=== PATIENT | male | born 1955 | race African-American/Black ===

== ENCOUNTER 2020-03-22 21:03 | Inpatient (IN) | payer MEDICAID ==
[~2020-03-22] VITALS: Ht 177.8 cm; Wt 64.5 kg
[~2020-03-22 21:03] MED LIST: TERA10CA3 PO
[2020-03-22] MEDS ORDERED: SODIUM CHLORIDE FLUSH 10ML SYR IVF ONE ×2 (21:30→22:30)
[2020-03-22] MEDS ORDERED: PLEASE ENTER HEIGHT AND WEIGHT MC SCH (21:30)
[2020-03-22] MEDS ORDERED: ONDANSETRON 2MG/ML, 2ML IVPush ONE (21:30)
[2020-03-22] MEDS ORDERED: ONDANSETRON 2MG/ML, 2ML ONE (21:40)
[2020-03-22] MEDS ORDERED: MORPHINE SULFATE 4 MG/ML, 1ML ONE ×2 (21:40→22:39)
[2020-03-22 21:46] LABS: ALANINE AMINOTRANSFERASE 113 U/L (12-78); ALBUMIN 3.1 g/dL (3.4-5.0); ANION GAP 20 mmol/L (5-15); CALCIUM 9.7 mg/dL (8.5-10.1); CHLORIDE 111 mmol/L (98-107); MEAN CORPUSCULAR HEMOGLOBIN 29.3 pg (27.5-34.5); MEAN CORPUSCULAR HGB CONC 33.3 g/dL (33.2-36.2); MEAN CORPUSCULAR VOLUME 87.9 fL (81-97); MEAN PLATELET VOLUME 8.7 fL (7.4-10.4); PLATELET COUNT 228 x10^3/uL (130-400); RED BLOOD COUNT 4.77 x10^6/uL (4.38-5.82); RED CELL DISTRIBUTION WIDTH 13.5 % (9.4-14.8)
[2020-03-22 21:56] LABS: ALKALINE PHOSPHATASE 74 U/L (45-117); BILIRUBIN,TOTAL 0.6 mg/dL (0.2-1.0); TOTAL PROTEIN 8.4 g/dL (6.4-8.2)
[2020-03-22] MEDS: MORPHINE SULFATE 4 MG/ML, 1ML IVPush PRN ×2 (22:04→22:46)
--- NOTE | 2020-03-22 22:05 | NUR ---
TP RN: BUN 225 TAKEN FROM AMOL FERRERA AND REPORTED TO ERP.
[2020-03-22] MEDS ORDERED: SODIUM CHLORIDE 0.9% 1,000 ML IV ONE (22:07)
--- NOTE | 2020-03-22 22:07 | NUR ---
IV ESTABLISHED, PT MEDICATED PER EMAR. 5 RIGHTS ADDRESSED. VITALS REMAIN STABLE. OFFICER AT BEDSIDE.
[2020-03-22] MEDS ORDERED: SODIUM CHLORIDE 0.9% 1,000ML IVBOLUS ONE (22:30)
[2020-03-22 22:32] LABS: BASOPHILS % (AUTO) 0 % (0-1); EOSINOPHILS % (AUTO) 0 % (1-7); LYMPHOCYTES # (AUTO) 0.14 x10^3/uL (1-3.4); LYMPHOCYTES % (AUTO) 2 % (22-44); MD SCAN; MONOCYTES # (AUTO) 0.28 x10^3/uL (0.2-0.8); MONOCYTES % (AUTO) 3 % (2-9); NEUTROPHILS # (AUTO) 8.88 x10^3/uL (1.8-6.8); NEUTROPHILS % (AUTO) 95 % (42-75)
--- NOTE | 2020-03-22 22:46 | NUR ---
PT MEDICATED FOR PAIN. 5 RIGHTS ADDRESSED.
--- NOTE | 2020-03-22 23:08 | NUR ---
FELTON ATTEMPTED X 2 BY [address] DI[address] CORLEY PLACED 16 FR FELTON AT BEDSIDE. 2000ML URINE OUTPUT. DARK CLOUDY. PT REPORTS RELIEF. OFFICER REMAINS AT BEDSIDE. ALL VITALS STABLE .
--- NOTE | 2020-03-22 23:10 | NUR ---
URINE SAMPLE COLLECTED AND SENT TO LAB
[2020-03-22 23:31] LABS: MICROSCOPIC INDICATED
[2020-03-23 00:15] VITALS: BP 116/78
[2020-03-23] MEDS ORDERED: hydrALAzine 20 MG/ML, 1ML IVPush PRN (01:30)
[2020-03-23] MEDS ORDERED: ACETAMINOPHEN 325 MG TABLET PO PRN (01:30)
[2020-03-23] MEDS ORDERED: ONDANSETRON 2MG/ML, 2ML IVPush PRN (01:30)
[2020-03-23 01:44] LABS: CHLORIDE,URINE RANDOM 17 mmol/L; POTASSIUM,URINE RANDOM 14 mmol/L; SODIUM,URINE RANDOM 43 mmol/L
[2020-03-23 01:47] LABS: AMPHETAMINE SCREEN, URINE Positive (Negative); BARBITURATE SCREEN, URINE Negative (Negative); BENZODIAZEPINE SCREEN, URINE Negative (Negative); CANNABINOID SCREEN, URINE Negative (Negative); COCAINE SCREEN, URINE Negative (Negative); METHADONE SCREEN, URINE Negative (Negative); OPIATE SCREEN, URINE Negative (Negative)
[2020-03-23] MEDS: LACTATED RINGERS 1,000 ML IV SCH ×2 (01:48→10:47)
[2020-03-23] MEDS: CEFTRIAXONE PMX 1GM/50ML 50 ML IV SCH (02:08)
[2020-03-23 02:43] LABS: BASOPHILS % (AUTO) 0 % (0-1); EOSINOPHILS # (AUTO) 0.05 x10^3/uL (0-0.4); EOSINOPHILS % (AUTO) 0 % (1-7); LYMPHOCYTES # (AUTO) 0.45 x10^3/uL (1-3.4); LYMPHOCYTES % (AUTO) 4 % (22-44); MD NO; MEAN CORPUSCULAR HEMOGLOBIN 29.4 pg (27.5-34.5); MEAN CORPUSCULAR HGB CONC 33.2 g/dL (33.2-36.2); MEAN CORPUSCULAR VOLUME 88.5 fL (81-97); MEAN PLATELET VOLUME 8.3 fL (7.4-10.4); MONOCYTES # (AUTO) 0.61 x10^3/uL (0.2-0.8); MONOCYTES % (AUTO) 5 % (2-9); NEUTROPHILS # (AUTO) 11.69 x10^3/uL (1.8-6.8); NEUTROPHILS % (AUTO) 91 % (42-75); PLATELET COUNT 208 x10^3/uL (130-400); RED BLOOD COUNT 4.48 x10^6/uL (4.38-5.82); RED CELL DISTRIBUTION WIDTH 13.1 % (9.4-14.8)
[2020-03-23 02:48] LABS: ANION GAP 15 mmol/L (5-15); CALCIUM 9.2 mg/dL (8.5-10.1); CHLORIDE 122 mmol/L (98-107)
[2020-03-23 04:24] VITALS: BP 117/68
[2020-03-23 07:10] VITALS: BP 122/76
[2020-03-23] MEDS: SENNA/DOCUSATE TABLET PO SCH (10:47)
[2020-03-23] MEDS: TAMSULOSIN 0.4 MG CAP.ER.24H PO SCH (10:48)
[2020-03-23 12:42] VITALS: BP 115/76
[2020-03-23] MEDS: SODIUM BICARB 8.4%,50ML SYR. 75 MEQ in DEXTROSE 5% 1,000 ML IV SCH ×2 (13:08→21:41)
[2020-03-23 13:18] LABS: RED BLOOD COUNT 4.62 x10^6/uL (4.38-5.82)
[2020-03-23 13:35] LABS: ABSOLUTE RETICS # 0.026 x10^6/uL (0.5-1.5); RETICULOCYTE COUNT % 0.55 % (0.5-1.5)
[2020-03-23 13:36] LABS: CALCIUM 9.2 mg/dL (8.5-10.1)
[2020-03-23 18:58] VITALS: BP 115/74
[2020-03-24 00:22] VITALS: BP 130/75
[2020-03-24] MEDS: CEFTRIAXONE PMX 1GM/50ML 50 ML IV SCH (01:43)
[2020-03-24] MEDS: SODIUM BICARB 8.4%,50ML SYR. 75 MEQ in DEXTROSE 5% 1,000 ML IV SCH (05:25)
[2020-03-24 06:18] VITALS: BP 115/75
[2020-03-24 06:27] LABS: BASOPHILS % (AUTO) 0 % (0-1); EOSINOPHILS # (AUTO) 0.03 x10^3/uL (0-0.4); EOSINOPHILS % (AUTO) 0 % (1-7); LYMPHOCYTES # (AUTO) 0.47 x10^3/uL (1-3.4); LYMPHOCYTES % (AUTO) 8 % (22-44); MD NO; MEAN CORPUSCULAR HEMOGLOBIN 29.4 pg (27.5-34.5); MEAN CORPUSCULAR HGB CONC 33.1 g/dL (33.2-36.2); MEAN CORPUSCULAR VOLUME 88.8 fL (81-97); MEAN PLATELET VOLUME 8.1 fL (7.4-10.4); MONOCYTES # (AUTO) 0.71 x10^3/uL (0.2-0.8); MONOCYTES % (AUTO) 12 % (2-9); NEUTROPHILS # (AUTO) 4.49 x10^3/uL (1.8-6.8); NEUTROPHILS % (AUTO) 79 % (42-75); PLATELET COUNT 222 x10^3/uL (130-400); RED BLOOD COUNT 4.76 x10^6/uL (4.38-5.82); RED CELL DISTRIBUTION WIDTH 13.7 % (9.4-14.8)
[2020-03-24 06:37] LABS: ALBUMIN 2.6 g/dL (3.4-5.0); CALCIUM 9.2 mg/dL (8.5-10.1)
[2020-03-24 06:52] LABS: ALANINE AMINOTRANSFERASE 77 U/L (12-78); ALKALINE PHOSPHATASE 68 U/L (45-117); BILIRUBIN,TOTAL 0.4 mg/dL (0.2-1.0); CREATININE 3.31 mg/dL (0.7-1.3)
[2020-03-24 07:22] LABS: ANION GAP 8 mmol/L (5-15); CHLORIDE 134 mmol/L (98-107)
[2020-03-24] MEDS ORDERED: BISACODYL 10 MG SUPP PR PRN (08:30)
[2020-03-24] MEDS ORDERED: BISACODYL 5 MG EC TABLET PO PRN (08:30)
[2020-03-24] MEDS: SENNA/DOCUSATE TABLET PO SCH (10:17)
[2020-03-24] MEDS: TAMSULOSIN 0.4 MG CAP.ER.24H PO SCH (10:18)
[2020-03-24] MEDS: HYDROcodone/APAP 5/325 TABLET PO PRN ×2 (10:23→17:59)
[2020-03-24] MEDS ORDERED: ERGOCALCIFEROL 50,000 UNIT CAPSULE PO SCH (12:00)
[2020-03-24 12:49] VITALS: BP 115/73
[2020-03-24] MEDS ORDERED: SODIUM BICARB 8.4%,50ML SYR. 75 MEQ in DEXTROSE 5% 1,000 ML IV SCH (13:00)
[2020-03-24] MEDS: DEXTROSE 5% 1,000 ML IV SCH ×2 (13:11→20:03)
[2020-03-24 17:49] LABS: ALBUMIN 2.5 g/dL (3.4-5.0); ANION GAP 5 mmol/L (5-15); CALCIUM 9.1 mg/dL (8.5-10.1); CHLORIDE 129 mmol/L (98-107); CREATININE 2.25 mg/dL (0.7-1.3)
[2020-03-24 18:34] VITALS: BP 120/76
[2020-03-25 01:14] VITALS: BP 145/84
[2020-03-25] MEDS: CEFTRIAXONE PMX 1GM/50ML 50 ML IV SCH (01:37)
[2020-03-25] MEDS: DEXTROSE 5% 1,000 ML IV SCH ×4 (01:37→20:06)
[2020-03-25 05:55] LABS: CHLORIDE 123 mmol/L (98-107)
[2020-03-25 06:02] LABS: ALANINE AMINOTRANSFERASE 61 U/L (12-78); ALBUMIN 2.3 g/dL (3.4-5.0); ALKALINE PHOSPHATASE 62 U/L (45-117); ANION GAP 6 mmol/L (5-15); BILIRUBIN,TOTAL 0.6 mg/dL (0.2-1.0); CALCIUM 8.4 mg/dL (8.5-10.1); CREATININE 1.82 mg/dL (0.7-1.3); TOTAL PROTEIN 7.2 g/dL (6.4-8.2)
[2020-03-25 06:03] LABS: MEAN CORPUSCULAR HEMOGLOBIN 29.4 pg (27.5-34.5); MEAN CORPUSCULAR VOLUME 89.2 fL (81-97); MEAN PLATELET VOLUME 8.2 fL (7.4-10.4); PLATELET COUNT 203 x10^3/uL (130-400); RED BLOOD COUNT 4.53 x10^6/uL (4.38-5.82); RED CELL DISTRIBUTION WIDTH 13.6 % (9.4-14.8)
[2020-03-25 06:26] LABS: BASOPHILS # (AUTO) 0.01 x10^3/uL (0-0.1); BASOPHILS % (AUTO) 0 % (0-1); EOSINOPHILS # (AUTO) 0.14 x10^3/uL (0-0.4); EOSINOPHILS % (AUTO) 2 % (1-7); LYMPHOCYTES # (AUTO) 1.18 x10^3/uL (1-3.4); LYMPHOCYTES % (AUTO) 18 % (22-44); MD SCAN; MONOCYTES % (AUTO) 14 % (2-9); NEUTROPHILS # (AUTO) 4.39 x10^3/uL (1.8-6.8); NEUTROPHILS % (AUTO) 66 % (42-75)
[2020-03-25 07:43] VITALS: BP 128/82
[2020-03-25] MEDS ORDERED: ACETAMINOPHEN 325 MG TABLET PO PRN (08:00)
[2020-03-25] MEDS: SENNA/DOCUSATE TABLET PO SCH (08:45)
[2020-03-25] MEDS: TAMSULOSIN 0.4 MG CAP.ER.24H PO SCH (08:45)
[2020-03-25] MEDS: HEPARIN 5,000 UNITS/ML, 1ML SQ SCH ×2 (08:53→17:07)
[2020-03-25 13:45] VITALS: BP 139/94
[2020-03-25 18:57] VITALS: BP 134/85
[2020-03-26 00:22] VITALS: BP 143/91
[2020-03-26] MEDS: DEXTROSE 5% 1,000 ML IV SCH ×2 (01:30→05:48)
[2020-03-26] MEDS: HEPARIN 5,000 UNITS/ML, 1ML SQ SCH ×3 (01:30→18:10)
[2020-03-26] MEDS: CEFTRIAXONE PMX 1GM/50ML 50 ML IV SCH (02:31)
[2020-03-26 05:57] LABS: ALBUMIN 2.1 g/dL (3.4-5.0); ANION GAP 2 mmol/L (5-15); CHLORIDE 118 mmol/L (98-107); CREATININE 1.38 mg/dL (0.7-1.3)
[2020-03-26 06:05] LABS: MEAN CORPUSCULAR HEMOGLOBIN 28.9 pg (27.5-34.5); MEAN CORPUSCULAR HGB CONC 32.4 g/dL (33.2-36.2); MEAN CORPUSCULAR VOLUME 89.2 fL (81-97); MEAN PLATELET VOLUME 8.5 fL (7.4-10.4); PLATELET COUNT 175 x10^3/uL (130-400); RED BLOOD COUNT 4.54 x10^6/uL (4.38-5.82); RED CELL DISTRIBUTION WIDTH 13.8 % (9.4-14.8)
[2020-03-26 06:30] LABS: MD SCAN
[2020-03-26 06:31] LABS: BASOPHILS # (AUTO) 0.04 x10^3/uL (0-0.1); BASOPHILS % (AUTO) 1 % (0-1); EOSINOPHILS # (AUTO) 0.19 x10^3/uL (0-0.4); EOSINOPHILS % (AUTO) 3 % (1-7); LYMPHOCYTES # (AUTO) 1.99 x10^3/uL (1-3.4); LYMPHOCYTES % (AUTO) 28 % (22-44); MONOCYTES # (AUTO) 0.52 x10^3/uL (0.2-0.8); MONOCYTES % (AUTO) 7 % (2-9); NEUTROPHILS # (AUTO) 4.33 x10^3/uL (1.8-6.8); NEUTROPHILS % (AUTO) 61 % (42-75)
[2020-03-26 06:58] VITALS: BP 118/76
[2020-03-26] MEDS ORDERED: MAGNESIUM SULFATE PMX 4GM/100M 100 ML IV ONE (07:30)
[2020-03-26] MEDS: SENNA/DOCUSATE TABLET PO SCH (08:44)
[2020-03-26] MEDS: CALCIUM CARBONATE 500 MG TABLET PO SCH ×2 (08:44→21:17)
[2020-03-26] MEDS: TAMSULOSIN 0.4 MG CAP.ER.24H PO SCH (08:44)
[2020-03-26 08:55] LABS: CHOL/HDL RATIO 3.6; LDL/HDL RATIO 1.9 (0.5-3.0)
[2020-03-26] MEDS ORDERED: CEPH-368 PO (12:11)
[2020-03-26] MEDS ORDERED: TAMS-11 PO (12:11)
[2020-03-26] MEDS ORDERED: ERGO500017 PO (12:11)
[2020-03-26] MEDS ORDERED: CALC500T11 PO (12:11)
[2020-03-26 13:55] VITALS: BP 114/69
[2020-03-26 21:01] VITALS: BP 124/71
[2020-03-27 00:22] VITALS: BP 133/84
[2020-03-27] MEDS: HEPARIN 5,000 UNITS/ML, 1ML SQ SCH ×3 (02:31→18:02)
[2020-03-27] MEDS: CEFTRIAXONE PMX 1GM/50ML 50 ML IV SCH (02:31)
[2020-03-27 06:25] VITALS: BP 111/70
[2020-03-27 07:19] LABS: BASOPHILS # (AUTO) 0.03 x10^3/uL (0-0.1); BASOPHILS % (AUTO) 0 % (0-1); EOSINOPHILS # (AUTO) 0.09 x10^3/uL (0-0.4); EOSINOPHILS % (AUTO) 1 % (1-7); LYMPHOCYTES # (AUTO) 2.18 x10^3/uL (1-3.4); LYMPHOCYTES % (AUTO) 29 % (22-44); MD NO; MEAN CORPUSCULAR HEMOGLOBIN 29.3 pg (27.5-34.5); MEAN CORPUSCULAR HGB CONC 32.1 g/dL (33.2-36.2); MEAN CORPUSCULAR VOLUME 91.3 fL (81-97); MEAN PLATELET VOLUME 8.9 fL (7.4-10.4); MONOCYTES # (AUTO) 0.47 x10^3/uL (0.2-0.8); MONOCYTES % (AUTO) 6 % (2-9); NEUTROPHILS # (AUTO) 4.87 x10^3/uL (1.8-6.8); NEUTROPHILS % (AUTO) 64 % (42-75); PLATELET COUNT 155 x10^3/uL (130-400); RED BLOOD COUNT 4.78 x10^6/uL (4.38-5.82); RED CELL DISTRIBUTION WIDTH 13.5 % (9.4-14.8)
[2020-03-27 07:27] LABS: ALBUMIN 2.2 g/dL (3.4-5.0); ANION GAP 6 mmol/L (5-15); CALCIUM 8.3 mg/dL (8.5-10.1); CHLORIDE 115 mmol/L (98-107)
[2020-03-27 07:30] LABS: ALANINE AMINOTRANSFERASE 50 U/L (12-78); ALKALINE PHOSPHATASE 73 U/L (45-117); BILIRUBIN,TOTAL 0.4 mg/dL (0.2-1.0); TOTAL PROTEIN 7.1 g/dL (6.4-8.2)
[2020-03-27] MEDS: TAMSULOSIN 0.4 MG CAP.ER.24H PO SCH (08:02)
[2020-03-27] MEDS: SENNA/DOCUSATE TABLET PO SCH (08:02)
[2020-03-27] MEDS: CALCIUM CARBONATE 500 MG TABLET PO SCH ×2 (08:02→21:07)
[2020-03-27] MEDS ORDERED: DEXTROSE 5% 1,000 ML IV SCH (12:00)
[2020-03-27 15:47] VITALS: BP 123/84
[2020-03-27 21:06] VITALS: BP 108/71
[2020-03-28 02:31] VITALS: BP 114/73
[2020-03-28] MEDS: HEPARIN 5,000 UNITS/ML, 1ML SQ SCH ×2 (02:33→09:28)
[2020-03-28] MEDS: CEFTRIAXONE PMX 1GM/50ML 50 ML IV SCH (02:33)
[2020-03-28 05:59] LABS: ANION GAP 6 mmol/L (5-15); CHLORIDE 113 mmol/L (98-107); CREATININE 1.17 mg/dL (0.7-1.3)
[2020-03-28 07:42] VITALS: BP 122/79
[2020-03-28 07:47] LABS: BASOPHILS % (AUTO) 0 % (0-1); EOSINOPHILS # (AUTO) 0.11 x10^3/uL (0-0.4); EOSINOPHILS % (AUTO) 2 % (1-7); LYMPHOCYTES # (AUTO) 1.82 x10^3/uL (1-3.4); LYMPHOCYTES % (AUTO) 27 % (22-44); MD SCAN; MEAN CORPUSCULAR HEMOGLOBIN 29.1 pg (27.5-34.5); MEAN CORPUSCULAR HGB CONC 32.5 g/dL (33.2-36.2); MEAN CORPUSCULAR VOLUME 89.6 fL (81-97); MEAN PLATELET VOLUME 9.5 fL (7.4-10.4); MONOCYTES # (AUTO) 0.41 x10^3/uL (0.2-0.8); MONOCYTES % (AUTO) 6 % (2-9); NEUTROPHILS % (AUTO) 66 % (42-75); PLATELET COUNT 148 x10^3/uL (130-400); RED BLOOD COUNT 4.33 x10^6/uL (4.38-5.82); RED CELL DISTRIBUTION WIDTH 13.1 % (9.4-14.8)
[2020-03-28] MEDS ORDERED: POTASSIUM CHLORIDE 20 MEQ TAB.ER.PRT PO ONE (08:00)
[2020-03-28] MEDS: SENNA/DOCUSATE TABLET PO SCH (09:00)
[2020-03-28] MEDS: CALCIUM CARBONATE 500 MG TABLET PO SCH (09:28)
[2020-03-28] MEDS: TAMSULOSIN 0.4 MG CAP.ER.24H PO SCH (09:28)
[2020-03-28] MEDS ORDERED: DEXTROSE 5% 1,000 ML IV SCH (12:00)
== END 2020-03-28 11:51 | disposition home or self-care (01) | DRG 871 ==
LOC: ED 03-23 00:07 → EDIP 03-23 00:33 → 4WST 03-23 00:57
PROVIDERS: ADMIT Family Medicine; ATTEND Internal Medicine
DX: A41.9 Sepsis, unspecified organism (principal); G92 Toxic encephalopathy; K85.90 Acute pancreatitis without necrosis or infection, unspecified; E87.0 Hyperosmolality and hypernatremia; E87.2 Acidosis; N13.6 Pyonephrosis; N17.9 Acute kidney failure, unspecified; D64.9 Anemia, unspecified; E83.39 Other disorders of phosphorus metabolism; E83.42 Hypomagnesemia; E83.51 Hypocalcemia; F10.10 Alcohol abuse, uncomplicated; F12.90 Cannabis use, unspecified, uncomplicated; F17.200 Nicotine dependence, unspecified, uncomplicated; G47.00 Insomnia, unspecified; J45.909 Unspecified asthma, uncomplicated; N18.9 Chronic kidney disease, unspecified; N25.0 Renal osteodystrophy; N40.1 Benign prostatic hyperplasia with lower urinary tract symptoms; R33.8 Other retention of urine; E79.0 Hyperuricemia without signs of inflammatory arthritis and tophaceous disease; R53.81 Other malaise; F19.10 Other psychoactive substance abuse, uncomplicated
CPT/HCPCS: 36415; 76770; 80048; 80053; 80061; 80069; 80307; 81001; 82150; 82306; 82310; 82330; 82436; 82550; 82570; 82728; 83540; 83550; 83605; 83690; 83735; 83970; 84100; 84133; 84153; 84300; 84443; 84550; 85025; 85045; 87086; 93005; 96361; 96374; 96375; 96376; G0378; J0696; J1644; J2405; J7070; J2270; J3475; J7030; J7120

== ENCOUNTER 2020-06-15 17:07 | Emergency (ER) | payer MEDICAID ==
[~2020-06-15] VITALS: Ht 185.4 cm; Wt 75.0 kg
[~2020-06-15 17:07] MED LIST changes: +CALC500T11 PO; +CEPH-368 PO; +ERGO500017 PO; +TAMS-11 PO
--- NOTE | 2020-06-15 17:21 | NUR ---
BIB [facility] FOR C/O URINARY RETENTION. STATES HE HAS HX AND USUALLY SELF CATHS BUT STATES HE HAS BEEN URINATING ON HIS OWN AND HASN'T SEELF CATHS IN ONE WEEK. PT STATES HE MISSED HIS MEDS YESTERDAY AND TODAY IS HAVING COMPLICATIONS. CALLED EMS BECAUSE "I WAS HURTING REAL BAD". STATES HE STILL HAS SELF CATHING SUPPLIES. PT WENT TO URINATE W/ EMS PRIOR TO COMING TO ROOM. STATES DRIBBLES OF URINE. BLADDER SCANNER SHOWED >791 ML. PT PROVIDED W/ SELF CATH SUPPLIES AND INSTRUCTED ON NEED FOR UA SAMPLE. PT VERBALIZES UNDERSTANDING.
--- NOTE | 2020-06-15 17:50 | NUR ---
PT STRAIGHT CATH'D. BLADDER SCAN NOW 0 ML.
[2020-06-15 17:53] LABS: MICROSCOPIC INDICATED
--- NOTE | 2020-06-15 17:55 | NUR ---
EDPA LONG NOTIFIED OF EVENTS PRIOR TO ASSESSMENT IN ROOM.
[2020-06-15 18:03] LABS: BASOPHILS % (AUTO) 0 % (0-1); EOSINOPHILS # (AUTO) 0.01 x10^3/uL (0-0.4); EOSINOPHILS % (AUTO) 0 % (1-7); LYMPHOCYTES # (AUTO) 0.66 x10^3/uL (1-3.4); LYMPHOCYTES % (AUTO) 8 % (22-44); MD NO; MEAN CORPUSCULAR HEMOGLOBIN 29.3 pg (27.5-34.5); MEAN CORPUSCULAR HGB CONC 33.3 g/dL (33.2-36.2); MEAN PLATELET VOLUME 8.2 fL (7.4-10.4); MONOCYTES # (AUTO) 0.42 x10^3/uL (0.2-0.8); MONOCYTES % (AUTO) 5 % (2-9); NEUTROPHILS # (AUTO) 7.74 x10^3/uL (1.8-6.8); NEUTROPHILS % (AUTO) 88 % (42-75); PLATELET COUNT 214 x10^3/uL (130-400); RED BLOOD COUNT 5.14 x10^6/uL (4.38-5.82); RED CELL DISTRIBUTION WIDTH 13.4 % (9.4-14.8)
[2020-06-15 18:13] LABS: ANION GAP 8 mmol/L (5-15); CALCIUM 10.5 mg/dL (8.5-10.1); CHLORIDE 112 mmol/L (98-107); CREATININE 1.92 mg/dL (0.7-1.3)
[2020-06-15 18:15] VITALS: BP 130/87
[2020-06-15] MEDS ORDERED: MORPHINE SULFATE 4 MG/ML, 1ML IVPush ONE (18:30)
[2020-06-15] MEDS ORDERED: ONDANSETRON 2MG/ML, 2ML IVPush ONE (18:30)
== END 2020-06-15 18:54 | disposition home or self-care (01) ==
LOC: ED 18:15
DX: N39.0 Urinary tract infection, site not specified (principal); R10.30 Lower abdominal pain, unspecified; F17.210 Nicotine dependence, cigarettes, uncomplicated; J45.909 Unspecified asthma, uncomplicated
CPT/HCPCS: 36415; 80048; 81001; 85025; 87077; 87086; 87186; 99406

== ENCOUNTER 2020-07-26 14:23 | Inpatient (IN) | payer MEDICAID ==
[~2020-07-26] VITALS: Ht 185.4 cm; Wt 72.4 kg
--- NOTE | 2020-07-26 14:30 | NUR ---
PT STATES THAT HE HAS BEEN HAVING ABDOMINAL PAIN FOR 2 DAYS THAT IS GETTING WORSE WITH SOME SIDE AND BACK PAIN. PT SELF CATHS BECAUSE OF BPH AND IS SCHEDULED FOR SURGERY THIS MONTH FOR SAME. PT FEELS SOB BUT HE THINKS IT IS BECAUSE OF HIS ABDOMINAL PAIN.
[2020-07-26] MEDS ORDERED: HYDROmorphone 1 MG/ML, 1ML INJ ONE ×2 (15:34→17:20)
[2020-07-26] MEDS ORDERED: ONDANSETRON 2MG/ML, 2ML ONE (15:34)
[2020-07-26 15:52] LABS: MEAN CORPUSCULAR HEMOGLOBIN 29.3 pg (27.5-34.5); MEAN CORPUSCULAR HGB CONC 33.3 g/dL (33.2-36.2); MEAN CORPUSCULAR VOLUME 87.9 fL (81-97); MEAN PLATELET VOLUME 8.9 fL (7.4-10.4); PLATELET COUNT 191 x10^3/uL (130-400); RED BLOOD COUNT 4.19 x10^6/uL (4.38-5.82); RED CELL DISTRIBUTION WIDTH 13.7 % (9.4-14.8)
[2020-07-26] MEDS ORDERED: HYDROmorphone 2 MG/ML, 1ML IVPush PRN (16:00)
[2020-07-26] MEDS ORDERED: ONDANSETRON 2MG/ML, 2ML IVPush ONE (16:00)
[2020-07-26] MEDS ORDERED: FAMOTIDINE 20 MG/2 ML IVPush ONE (16:00)
[2020-07-26 16:02] LABS: ALANINE AMINOTRANSFERASE 56 U/L (12-78); ALBUMIN 2.7 g/dL (3.4-5.0); ANION GAP 6 mmol/L (5-15); CHLORIDE 113 mmol/L (98-107)
[2020-07-26 16:03] LABS: BASOPHILS # (AUTO) 0.01 x10^3/uL (0-0.1); BASOPHILS % (AUTO) 0 % (0-1); EOSINOPHILS # (AUTO) 0.11 x10^3/uL (0-0.4); EOSINOPHILS % (AUTO) 1 % (1-7); LYMPHOCYTES # (AUTO) 1.35 x10^3/uL (1-3.4); LYMPHOCYTES % (AUTO) 9 % (22-44); MD NO; MONOCYTES % (AUTO) 12 % (2-9); NEUTROPHILS # (AUTO) 11.36 x10^3/uL (1.8-6.8); NEUTROPHILS % (AUTO) 78 % (42-75)
[2020-07-26 16:04] LABS: ALKALINE PHOSPHATASE 69 U/L (45-117); TOTAL PROTEIN 7.6 g/dL (6.4-8.2)
[2020-07-26 17:16] LABS: MICROSCOPIC AUTO
[2020-07-26] MEDS ORDERED: FAMOTIDINE 20 MG/2 ML ONE (17:21)
--- NOTE | 2020-07-26 17:35 | NUR ---
PT FOUBND IN [facility] DRINKING CONTRAST FOR CT. PT MEDICATED PER THE JAN. PT ABD PAIN 05/21.
--- NOTE | 2020-07-26 18:25 | NUR ---
OFF FLOOR TO CT.
--- NOTE | 2020-07-26 18:52 | NUR ---
PT MUCH MORE COMFORTABLE AT THIS TIME. AWAITING DISPO.
[2020-07-26] MEDS ORDERED: CEFTRIAXONE PMX 1GM/50ML 50 ML IV ONE (19:30)
[2020-07-26] MEDS ORDERED: CEFTRIAXONE PMX 1GM/50ML 50 ML ONE (19:32)
--- NOTE | 2020-07-26 20:22 | NUR ---
PT RESTING IN BED, PT DENIED ANY EANTS OR NEEDS AT THIS TIME
[2020-07-26] MEDS ORDERED: SODIUM CHLORIDE FLUSH 10ML SYR IVF PRN (20:30)
[2020-07-26 21:37] VITALS: BP 111/64
[2020-07-26] MEDS ORDERED: MELATONIN 5 MG TABLET PO PRN (22:00)
[2020-07-26] MEDS ORDERED: DOCUSATE 100 MG CAPSULE PO PRN (22:00)
[2020-07-26] MEDS ORDERED: CALCIUM CARBONATE 500 MG TAB.CHEW PO PRN (22:00)
[2020-07-26] MEDS ORDERED: ACETAMINOPHEN 325 MG TABLET PO PRN (22:00)
[2020-07-27 00:38] VITALS: BP 112/71
[2020-07-27 05:47] LABS: BASOPHILS % (AUTO) 0 % (0-1); EOSINOPHILS # (AUTO) 0.11 x10^3/uL (0-0.4); EOSINOPHILS % (AUTO) 1 % (1-7); LYMPHOCYTES # (AUTO) 1.23 x10^3/uL (1-3.4); LYMPHOCYTES % (AUTO) 10 % (22-44); MD NO; MEAN CORPUSCULAR HEMOGLOBIN 28.6 pg (27.5-34.5); MEAN CORPUSCULAR HGB CONC 32.5 g/dL (33.2-36.2); MEAN CORPUSCULAR VOLUME 88.1 fL (81-97); MEAN PLATELET VOLUME 8.8 fL (7.4-10.4); MONOCYTES # (AUTO) 1.27 x10^3/uL (0.2-0.8); MONOCYTES % (AUTO) 11 % (2-9); NEUTROPHILS # (AUTO) 9.51 x10^3/uL (1.8-6.8); NEUTROPHILS % (AUTO) 79 % (42-75); PLATELET COUNT 178 x10^3/uL (130-400); RED BLOOD COUNT 4.08 x10^6/uL (4.38-5.82); RED CELL DISTRIBUTION WIDTH 13.6 % (9.4-14.8)
[2020-07-27 05:48] LABS: CHLORIDE 111 mmol/L (98-107)
[2020-07-27 06:02] LABS: ANION GAP 9 mmol/L (5-15); CALCIUM 8.9 mg/dL (8.5-10.1); CREATININE 1.67 mg/dL (0.7-1.3)
[2020-07-27] MEDS: HYDROcodone/APAP 5/325 TABLET PO PRN ×3 (06:33→16:45)
[2020-07-27] MEDS: LACTATED RINGERS 1,000 ML IV SCH ×3 (06:34→18:44)
[2020-07-27 07:50] VITALS: BP 97/60
[2020-07-27] MEDS: TAMSULOSIN 0.4 MG CAP.ER.24H PO SCH (08:42)
[2020-07-27 15:00] VITALS: BP 101/60
[2020-07-27 19:04] VITALS: BP 94/58
[2020-07-27] MEDS ORDERED: CEFTRIAXONE PMX 1GM/50ML 50 ML IV SCH (19:30)
[2020-07-28 01:57] VITALS: BP 101/63
[2020-07-28 05:37] LABS: BASOPHILS # (AUTO) 0.05 x10^3/uL (0-0.1); BASOPHILS % (AUTO) 1 % (0-1); EOSINOPHILS # (AUTO) 0.16 x10^3/uL (0-0.4); EOSINOPHILS % (AUTO) 2 % (1-7); LYMPHOCYTES # (AUTO) 1.15 x10^3/uL (1-3.4); LYMPHOCYTES % (AUTO) 12 % (22-44); MD NO; MEAN CORPUSCULAR HEMOGLOBIN 28.7 pg (27.5-34.5); MEAN CORPUSCULAR HGB CONC 32.3 g/dL (33.2-36.2); MEAN CORPUSCULAR VOLUME 88.9 fL (81-97); MONOCYTES # (AUTO) 0.73 x10^3/uL (0.2-0.8); MONOCYTES % (AUTO) 8 % (2-9); NEUTROPHILS # (AUTO) 7.57 x10^3/uL (1.8-6.8); NEUTROPHILS % (AUTO) 78 % (42-75); PLATELET COUNT 211 x10^3/uL (130-400); RED CELL DISTRIBUTION WIDTH 13.8 % (9.4-14.8)
[2020-07-28 05:46] LABS: CALCIUM 8.4 mg/dL (8.5-10.1); CHLORIDE 111 mmol/L (98-107)
[2020-07-28 05:49] LABS: ANION GAP 7 mmol/L (5-15); CREATININE 1.46 mg/dL (0.7-1.3)
[2020-07-28] MEDS: LACTATED RINGERS 1,000 ML IV SCH ×2 (05:53→13:15)
[2020-07-28] MEDS: HYDROcodone/APAP 5/325 TABLET PO PRN ×2 (05:58→20:23)
[2020-07-28] MEDS ORDERED: POTASSIUM CHLORIDE 20 MEQ TAB.ER.PRT PO ONE (06:30)
[2020-07-28 07:29] VITALS: BP 94/58
[2020-07-28] MEDS: TAMSULOSIN 0.4 MG CAP.ER.24H PO SCH (08:52)
[2020-07-28] MEDS ORDERED: PHARMACY MAY ADJ FOR RENAL FX MC PRN (12:30)
[2020-07-28 12:50] VITALS: BP 105/69
[2020-07-28] MEDS: CEFTRIAXONE PMX 1GM/50ML 50 ML IV SCH (20:23)
[2020-07-28 21:24] VITALS: BP 103/66
[2020-07-29 00:18] VITALS: BP 93/54
[2020-07-29] MEDS: LACTATED RINGERS 1,000 ML IV SCH ×3 (01:39→20:14)
[2020-07-29 05:35] LABS: BASOPHILS # (AUTO) 0.07 x10^3/uL (0-0.1); BASOPHILS % (AUTO) 1 % (0-1); EOSINOPHILS # (AUTO) 0.04 x10^3/uL (0-0.4); EOSINOPHILS % (AUTO) 1 % (1-7); LYMPHOCYTES % (AUTO) 17 % (22-44); MD NO; MEAN CORPUSCULAR HEMOGLOBIN 28.4 pg (27.5-34.5); MEAN CORPUSCULAR HGB CONC 31.7 g/dL (33.2-36.2); MEAN CORPUSCULAR VOLUME 89.4 fL (81-97); MEAN PLATELET VOLUME 8.3 fL (7.4-10.4); MONOCYTES # (AUTO) 0.62 x10^3/uL (0.2-0.8); MONOCYTES % (AUTO) 9 % (2-9); NEUTROPHILS # (AUTO) 5.02 x10^3/uL (1.8-6.8); NEUTROPHILS % (AUTO) 72 % (42-75); PLATELET COUNT 254 x10^3/uL (130-400); RED BLOOD COUNT 3.92 x10^6/uL (4.38-5.82)
[2020-07-29 05:43] LABS: CHLORIDE 113 mmol/L (98-107)
[2020-07-29 05:47] LABS: ANION GAP 7 mmol/L (5-15); CREATININE 1.33 mg/dL (0.7-1.3)
[2020-07-29] MEDS: HYDROcodone/APAP 5/325 TABLET PO PRN ×2 (06:23→16:19)
[2020-07-29 07:31] VITALS: BP 99/66
[2020-07-29] MEDS: TAMSULOSIN 0.4 MG CAP.ER.24H PO SCH (09:28)
[2020-07-29] MEDS: CEFTRIAXONE PMX 1GM/50ML 50 ML IV SCH ×2 (09:28→20:14)
[2020-07-29] MEDS ORDERED: SODIUM CHLORIDE 0.9%, 500ML IVBOLUS ONE (11:00)
[2020-07-29 12:40] VITALS: BP 109/69
[2020-07-29 18:15] VITALS: BP 97/58
[2020-07-30 00:56] VITALS: BP 125/84
[2020-07-30 05:55] LABS: CHLORIDE 114 mmol/L (98-107)
[2020-07-30 05:57] LABS: BASOPHILS # (AUTO) 0.01 x10^3/uL (0-0.1); BASOPHILS % (AUTO) 0 % (0-1); EOSINOPHILS # (AUTO) 0.04 x10^3/uL (0-0.4); EOSINOPHILS % (AUTO) 1 % (1-7); LYMPHOCYTES # (AUTO) 1.14 x10^3/uL (1-3.4); LYMPHOCYTES % (AUTO) 17 % (22-44); MD NO; MEAN CORPUSCULAR HEMOGLOBIN 28.2 pg (27.5-34.5); MEAN CORPUSCULAR HGB CONC 31.6 g/dL (33.2-36.2); MEAN CORPUSCULAR VOLUME 89.2 fL (81-97); MEAN PLATELET VOLUME 8.1 fL (7.4-10.4); MONOCYTES # (AUTO) 0.56 x10^3/uL (0.2-0.8); MONOCYTES % (AUTO) 9 % (2-9); NEUTROPHILS # (AUTO) 4.79 x10^3/uL (1.8-6.8); NEUTROPHILS % (AUTO) 73 % (42-75); PLATELET COUNT 309 x10^3/uL (130-400); RED BLOOD COUNT 3.99 x10^6/uL (4.38-5.82); RED CELL DISTRIBUTION WIDTH 13.9 % (9.4-14.8)
[2020-07-30 06:09] LABS: ANION GAP 7 mmol/L (5-15); CALCIUM 7.8 mg/dL (8.5-10.1); CREATININE 1.25 mg/dL (0.7-1.3)
[2020-07-30 07:43] VITALS: BP 123/78
[2020-07-30] MEDS ORDERED: LIDODERM 5% PATCH TD SCH (08:00)
[2020-07-30] MEDS ORDERED: KETOROLAC 30 MG/1 ML IVPush ONE (08:00)
[2020-07-30] MEDS: TAMSULOSIN 0.4 MG CAP.ER.24H PO SCH (09:13)
[2020-07-30] MEDS: CEFTRIAXONE PMX 1GM/50ML 50 ML IV SCH (09:15)
[2020-07-30] MEDS ORDERED: CEFD300C37 PO (13:40)
[2020-07-30] MEDS ORDERED: ACET325T26 PO (13:40)
[2020-07-30] MEDS ORDERED: LIDO700A20 TD (13:40)
[2020-07-30 14:23] VITALS: BP 107/70
== END 2020-07-30 16:30 | disposition home or self-care (01) | DRG 693 ==
LOC: ED 17:30 → EDIP 20:46 → 3N 21:33
PROVIDERS: ADMIT Family Medicine; ATTEND Family Medicine
PROC: 0T9B70Z Drainage of Bladder with Drainage Device, Via Natural or Artificial Opening (ICD-10-PCS; principal; 2020-07-26)
DX: N20.0 Calculus of kidney (principal); N17.0 Acute kidney failure with tubular necrosis; N12 Tubulo-interstitial nephritis, not specified as acute or chronic; N13.8 Other obstructive and reflux uropathy; E87.6 Hypokalemia; F17.200 Nicotine dependence, unspecified, uncomplicated; J45.909 Unspecified asthma, uncomplicated; K40.90 Unilateral inguinal hernia, without obstruction or gangrene, not specified as recurrent; N40.1 Benign prostatic hyperplasia with lower urinary tract symptoms; D72.829 Elevated white blood cell count, unspecified; Z59.0 Homelessness; Z87.440 Personal history of urinary (tract) infections
CPT/HCPCS: 36415; J3490; 74176; 80048; 80053; 81001; 83690; 83735; 85025; 87040; 87077; 87086; 87186; 93005; G0378; J0696; J1170; J1885; J2405; J7040; J7120

== ENCOUNTER 2020-09-15 16:23 | Emergency (ER) | payer MEDICAID ==
[~2020-09-15] VITALS: Ht 185.4 cm; Wt 61.9 kg
[~2020-09-15 16:23] MED LIST changes: +ACET325T26 PO; +CEFD300C37 PO; +LIDO700A20 TD
--- NOTE | 2020-09-15 17:34 | NUR ---
WIRE PULLER: PT AMBULATORY TO ROOM FROM LOBBY
[2020-09-15 17:41] LABS: BASOPHILS % (AUTO) 0 % (0-1); EOSINOPHILS % (AUTO) 0 % (1-7); LYMPHOCYTES % (AUTO) 12 % (22-44); MEAN CORPUSCULAR HEMOGLOBIN 28.1 pg (27.5-34.5); MEAN CORPUSCULAR HGB CONC 32.1 g/dL (33.2-36.2); MEAN PLATELET VOLUME 8.6 fL (7.4-10.4); MONOCYTES % (AUTO) 10 % (2-9); NEUTROPHILS % (AUTO) 78 % (42-75); PLATELET COUNT 237 x10^3/uL (130-400); RED BLOOD COUNT 4.47 x10^6/uL (4.38-5.82); RED CELL DISTRIBUTION WIDTH 14.2 % (9.4-14.8)
[2020-09-15 17:57] LABS: ALBUMIN 2.7 g/dL (3.4-5.0); ANION GAP 4 mmol/L (5-15); CALCIUM 9.2 mg/dL (8.5-10.1); CHLORIDE 109 mmol/L (98-107)
[2020-09-15 18:02] LABS: ALANINE AMINOTRANSFERASE 33 U/L (12-78); ALKALINE PHOSPHATASE 84 U/L (45-117); BILIRUBIN,TOTAL 0.7 mg/dL (0.2-1.0); CREATININE 2.18 mg/dL (0.7-1.3); TOTAL PROTEIN 9.1 g/dL (6.4-8.2)
--- NOTE | 2020-09-15 18:02 | NUR ---
PT WITH C/O R/L LQ ABD PAIN, DIFFICULTY URINATING. PT DOES HAVE HX BPH AND SELF CATHS AT HOME. PT STATES THIS HAS BEEN GOING ON FOR THREE DAYS. PT ALSO STATES HE HAS [place], SOB FOR ONE WEEK, PT HAS PENDING COVID TEST WITH HEALTH DEPARTMENT
[2020-09-15 18:22] LABS: MD SCAN
[2020-09-15 18:34] LABS: MICROSCOPIC INDICATED
--- NOTE | 2020-09-15 18:52 | NUR ---
BEDSIDE REPORT FROM MAOL MALONE. PT LAYING IN BED, JAYESHN. CONNECTED TO BP AND O2 MONITORS. VSS.
[2020-09-15] MEDS ORDERED: CEFDINIR 300 MG CAPSULE ONE (19:06)
[2020-09-15 19:10] VITALS: BP 110/73
[2020-09-15] MEDS ORDERED: CIPROFLOXACIN 500 MG TABLET PO ONE (19:30)
[2020-09-15] MEDS ORDERED: CEFDINIR 300 MG CAPSULE PO ONE (19:30)
== END 2020-09-15 19:39 | disposition home or self-care (01) ==
LOC: ED 18:50
DX: N30.01 Acute cystitis with hematuria (principal); N18.9 Chronic kidney disease, unspecified; N10 Acute pyelonephritis; R10.30 Lower abdominal pain, unspecified; R50.9 Fever, unspecified; R51.9 Headache, unspecified; R33.9 Retention of urine, unspecified; J45.909 Unspecified asthma, uncomplicated
CPT/HCPCS: 36415; 80053; 81001; 85025; 87077; 87086; 87186; 99283

== ENCOUNTER 2020-11-18 23:52 | Emergency (ER) | payer MEDICAID ==
[~2020-11-18] VITALS: Ht 185.4 cm; Wt 80.0 kg
--- NOTE | 2020-11-18 23:55 | NUR ---
INITIAL PT CONTACT. PT PRESENTS TO ED VIA EMS FROM MEN'S RETIREMENT C/O URINARY RETENTION X11 HOURS. PT STATES HE "NORMALLY SELF CATH'S BUT HIS BACKPACK WITH ALL SELF CATH MATERIALS WAS RECENTLY STOLEN, SO HAVENT BEEN ABLE TO CATH MYSELF". ERP AT BEDSIDE. PT SITTING UPRIGHT ON GURNEY, BLADDER SCAN TO BEDSIDE FOR EVAL. PT PLACED ON CONTINUOUS PULSE OX MONITORING.
--- NOTE | 2020-11-18 23:57 | NUR ---
BLADDER SCAN SHOWS BLADDER >999ML
--- NOTE | 2020-11-19 | NUR ---
Indwelling urinary cath placed via sterile technique.
[2020-11-19 00:42] LABS: MICROSCOPIC INDICATED
--- NOTE | 2020-11-19 01:16 | NUR ---
FELTON CATH REMOVED PER ERP ORDER, 1300 ML URINE OUT. PT TOLERATED PROCEDURE WELL.
[2020-11-19 01:17] VITALS: BP 129/72
--- NOTE | 2020-11-19 01:17 | NUR ---
Patient given discharge instructions and they have confirmed that they understand the instructions. Patient ambulatory with steady gait.
--- NOTE | 2020-11-19 01:18 | NUR ---
PT D/C WITH SELF CATH EQUIPMENT NEEDED PER ERP ORDER. PT VERBALIZED UNDERSTANFING OF PROPER USE. VERBALIZED UNDERSTANDING AND WILL FOLLOW UP WITH PCP FOR FURTHER SUPPLIES NEEDED. PT PROVIDED TAXI VOUCHER UPON D/C FROM ED.
== END 2020-11-19 01:20 | disposition home or self-care (01) ==
LOC: ED 11-19 01:08
DX: R33.9 Retention of urine, unspecified (principal); F17.210 Nicotine dependence, cigarettes, uncomplicated; J45.909 Unspecified asthma, uncomplicated; Z72.9 Problem related to lifestyle, unspecified
CPT/HCPCS: 51702; 81001; 87086; 87106; 99284; 99406

== ENCOUNTER 2020-11-19 17:29 | Emergency (ER) | payer MEDICAID ==
[~2020-11-19] VITALS: Ht 177.8 cm; Wt 70.0 kg
[2020-11-19 17:48] VITALS: BP 132/78
== END 2020-11-19 19:24 | disposition home or self-care (01) ==
LOC: ED 17:50
DX: R33.9 Retention of urine, unspecified (principal); R30.0 Dysuria; F17.200 Nicotine dependence, unspecified, uncomplicated
CPT/HCPCS: 99283

== ENCOUNTER 2020-11-29 23:16 | Emergency (ER) | payer MEDICAID ==
[~2020-11-29] VITALS: Ht 185.4 cm; Wt 80.0 kg
[2020-11-29 23:21] VITALS: BP 160/90
[2020-11-29 23:53] LABS: BASOPHILS % (AUTO) 0 % (0-1); EOSINOPHILS % (AUTO) 0 % (1-7); LYMPHOCYTES % (AUTO) 7 % (22-44); MEAN CORPUSCULAR HEMOGLOBIN 29.4 pg (27.5-34.5); MEAN CORPUSCULAR HGB CONC 33.6 g/dL (33.2-36.2); MEAN PLATELET VOLUME 7.8 fL (7.4-10.4); MONOCYTES % (AUTO) 10 % (2-9); NEUTROPHILS % (AUTO) 83 % (42-75); PLATELET COUNT 365 x10^3/uL (130-400); RED BLOOD COUNT 4.38 x10^6/uL (4.38-5.82); RED CELL DISTRIBUTION WIDTH 14.8 % (9.4-14.8)
[2020-11-30] MEDS ORDERED: LIDOCAINE 2%,20 ML JEL.PF.APP MM ONE
[2020-11-30 00:02] LABS: MD NO
[2020-11-30 00:04] LABS: ALANINE AMINOTRANSFERASE 38 U/L (12-78); ALBUMIN 3.2 g/dL (3.4-5.0); ANION GAP 6 mmol/L (5-15); CALCIUM 9.5 mg/dL (8.5-10.1); CHLORIDE 114 mmol/L (98-107); CREATININE 2.39 mg/dL (0.7-1.3)
[2020-11-30 00:09] LABS: ALKALINE PHOSPHATASE 95 U/L (45-117); BILIRUBIN,TOTAL 0.4 mg/dL (0.2-1.0); TOTAL PROTEIN 8.5 g/dL (6.4-8.2); TROPONIN I < 0.015 ng/mL (0.000-0.045)
[2020-11-30 00:28] LABS: MICROSCOPIC INDICATED
[2020-11-30] MEDS ORDERED: CEFDINIR 300 MG CAPSULE ONE (00:46)
[2020-11-30] MEDS ORDERED: CEFDINIR 300 MG CAPSULE PO ONE (01:00)
== END 2020-11-30 01:26 | disposition home or self-care (01) ==
LOC: ED 23:46
DX: N40.1 Benign prostatic hyperplasia with lower urinary tract symptoms (principal); R33.8 Other retention of urine; N30.01 Acute cystitis with hematuria; N18.30 Chronic kidney disease, stage 3 unspecified; J45.909 Unspecified asthma, uncomplicated
CPT/HCPCS: 36415; 80053; 81001; 83690; 84484; 85025; 87077; 87086; 99283

== ENCOUNTER 2020-12-01 16:18 | Emergency (ER) | payer MEDICAID ==
--- NOTE | 2020-12-01 16:27 | NUR ---
PT TRANSPORTED FROM TRIAGE TO ROOM VIA WC BY TECH.
--- NOTE | 2020-12-01 16:32 | NUR ---
PT PRESENTED TO ED D/T FELTON CATHETER ISSUES. PER PT REPORT CATHETER IS LEAKING. PT STATES CATHETER WAS PLACED TWO DAYS AGO BUT DOES NOT REMEMBER WHO PLACED CATHETER. PT ALSO HAS COMPLAINTS OF URINARY PAIN.
--- NOTE | 2020-12-01 16:50 | NUR ---
RN REPLACED FELTON CATHETER AND OBTAINED A URINE SAMPLE.
--- NOTE | 2020-12-01 17:27 | NUR ---
PT [facility] ON [facility].
[2020-12-01 17:34] LABS: MICROSCOPIC INDICATED
[2020-12-01 17:51] VITALS: BP 106/57
[2020-12-01] MEDS ORDERED: CEFTRIAXONE 1,000 MG ONE (18:00)
[2020-12-01] MEDS ORDERED: CEFTRIAXONE 1,000 MG IM ONE (18:00)
[2020-12-01] MEDS ORDERED: CEFTRIAXONE PMX 1GM/50ML 50 ML IV ONE (18:00)
[2020-12-01] MEDS ORDERED: PLEASE ENTER HEIGHT AND WEIGHT MC SCH (18:04)
--- NOTE | 2020-12-01 18:12 | NUR ---
PT DC IN A STABLE CONDITION. RN REPLACED FELTON DRAIN BAG TO LEG BAG. PT TAUGHT HOW TO USE LEG BAG. PT REFUSED DRAIN BAG A REPLACEMENT. DC INSTRUCTIONS DISCUSSED WITH PT. PT VERBALIZED UNDERSTANDING. PT GETTING SELF DRESSED. PT REQUESTED FOR TAXI VOUCHER. RN TO PROVIDE PT WITH ONE.
== END 2020-12-01 18:23 | disposition home or self-care (01) ==
LOC: ED 17:28
DX: N39.0 Urinary tract infection, site not specified (principal); Z72.9 Problem related to lifestyle, unspecified; F17.210 Nicotine dependence, cigarettes, uncomplicated; J45.909 Unspecified asthma, uncomplicated
CPT/HCPCS: 51702; 81001; 87077; 87086; 96372; 99284; 99406; J0696

== ENCOUNTER 2020-12-02 06:59 | Emergency (ER) | payer MEDICAID ==
--- NOTE | 2020-12-02 07:05 | NUR ---
PT NIL, PER SECURITY, PT IN BR.
== END 2020-12-02 07:26 | disposition left against medical advice (07) ==
LOC: ED 07:20
DX: Z53.21 Procedure and treatment not carried out due to patient leaving prior to being seen by health care provider (principal)

== ENCOUNTER 2021-01-27 05:14 | Emergency (ER) | payer MEDICAID ==
[~2021-01-27] VITALS: Ht 185.4 cm; Wt 75.0 kg
[2021-01-27] MEDS ORDERED: ONDANSETRON 2MG/ML, 2ML ONE (05:25)
[2021-01-27] MEDS ORDERED: MORPHINE SULFATE 4 MG/ML, 1ML ONE (05:26)
[2021-01-27] MEDS ORDERED: SODIUM CHLORIDE FLUSH 10ML SYR IVF ONE (05:30)
[2021-01-27] MEDS ORDERED: MORPHINE SULFATE 4 MG/ML, 1ML IVPush PRN (05:30)
[2021-01-27] MEDS ORDERED: SODIUM CHLORIDE 0.9% 1,000ML IVBOLUS ONE (05:30)
[2021-01-27] MEDS ORDERED: ONDANSETRON 2MG/ML, 2ML IVPush ONE (05:30)
[2021-01-27 05:52] LABS: BASOPHILS % (AUTO) 4 % (0-1); EOSINOPHILS % (AUTO) 2 % (1-7); LYMPHOCYTES % (AUTO) 47 % (22-44); MEAN CORPUSCULAR HEMOGLOBIN 29.9 pg (27.5-34.5); MEAN CORPUSCULAR HGB CONC 33.1 g/dL (33.2-36.2); MEAN PLATELET VOLUME 8.1 fL (7.4-10.4); MONOCYTES % (AUTO) 9 % (2-9); NEUTROPHILS % (AUTO) 39 % (42-75); PLATELET COUNT 268 x10^3/uL (130-400); RED BLOOD COUNT 4.43 x10^6/uL (4.38-5.82); RED CELL DISTRIBUTION WIDTH 13.3 % (9.4-14.8)
[2021-01-27 05:59] LABS: ALBUMIN 3.1 g/dL (3.4-5.0); ANION GAP 6 mmol/L (5-15); CALCIUM 8.9 mg/dL (8.5-10.1); CHLORIDE 112 mmol/L (98-107); CREATININE 1.51 mg/dL (0.7-1.3)
[2021-01-27 06:01] LABS: ALANINE AMINOTRANSFERASE 34 U/L (12-78); ALKALINE PHOSPHATASE 90 U/L (45-117); BILIRUBIN,TOTAL 0.1 mg/dL (0.2-1.0); TOTAL PROTEIN 7.6 g/dL (6.4-8.2)
[2021-01-27 06:11] LABS: MD SCAN
--- NOTE | 2021-01-27 06:34 | NUR ---
PT RESTING IN [address] WAY, STATES PAIN HAS IMPROVED. KESHA (): [phone]
--- NOTE | 2021-01-27 06:59 | NUR ---
REPORT GIVEN TO AMOL POP
--- NOTE | 2021-01-27 07:07 | NUR ---
PT OFF THE FLOOR TO CT
--- NOTE | 2021-01-27 07:25 | NUR ---
PT BACK FROM CT
[2021-01-27] MEDS ORDERED: OMNIPAQUE 350 MG/ML, 100ML BOTTLE ONE (07:51)
[2021-01-27 08:08] LABS: MICROSCOPIC AUTO
[2021-01-27 08:29] VITALS: BP 122/85
[2021-01-27] MEDS ORDERED: SODIUM CHLORIDE FLUSH 10ML SYR IVF PRN (08:30)
[2021-01-27] MEDS ORDERED: SODIUM CHLORIDE 0.9% 1,000 ML IV ONE (08:30)
== END 2021-01-27 09:15 | disposition home or self-care (01) ==
LOC: ED 06:33 → SUATTDRO 08:25 → UNDOADMIN 08:29 → ORIP 08:29 → ED 09:15
PROVIDERS: ATTEND Hospitalist
DX: K40.90 Unilateral inguinal hernia, without obstruction or gangrene, not specified as recurrent (principal); N18.30 Chronic kidney disease, stage 3 unspecified; R11.2 Nausea with vomiting, unspecified; Z20.822 Contact with and (suspected) exposure to COVID-19
CPT/HCPCS: 36415; 74177; 80053; 81001; 83605; 83690; 85025; 87086; 87635; 93005; 96361; 96374; 96375; 99285; J2270; J2405; J7030; Q9967

== ENCOUNTER 2021-08-01 00:44 | Emergency (ER) | payer MEDICAID ==
[2021-08-01 00:46] VITALS: BP 110/72
[2021-08-01 01:17] LABS: BASOPHILS % (AUTO) 0 % (0-1); EOSINOPHILS % (AUTO) 0 % (1-7); LYMPHOCYTES % (AUTO) 26 % (22-44); MEAN CORPUSCULAR HEMOGLOBIN 30.1 pg (27.5-34.5); MEAN CORPUSCULAR HGB CONC 33.1 g/dL (33.2-36.2); MONOCYTES % (AUTO) 11 % (2-9); NEUTROPHILS % (AUTO) 62 % (42-75); PLATELET COUNT 234 x10^3/uL (130-400); RED BLOOD COUNT 4.55 x10^6/uL (4.38-5.82); RED CELL DISTRIBUTION WIDTH 13.4 % (9.4-14.8)
[2021-08-01 01:28] LABS: ALBUMIN 3.2 g/dL (3.4-5.0); ANION GAP 6 mmol/L (5-15); CALCIUM 9.1 mg/dL (8.5-10.1); CHLORIDE 114 mmol/L (98-107); CREATININE 2.47 mg/dL (0.7-1.3)
--- NOTE | 2021-08-01 01:30 | NUR ---
pt to room from lobby
--- NOTE | 2021-08-01 01:43 | NUR ---
FIRST CONTACT: PATIENT RETURN TO ROOM FROM BATHROOM, ABLE TO PROVIDE SMALL AMOUNT OF URNIE. STATES HE HAS BEEN OFF HIS MEDICATION FOR A COUPLE WEEKS AND NOW CAN'T PEE, REFUSING FELTON CATH, JUST WANTS HIS MEDICATIONS.
[2021-08-01] MEDS ORDERED: TAMSULOSIN 0.4 MG CAP.ER.24H ONE (01:47)
[2021-08-01 01:54] LABS: MICROSCOPIC AUTO
[2021-08-01] MEDS ORDERED: TAMSULOSIN 0.4 MG CAP.ER.24H PO ONE (02:00)
[2021-08-01] MEDS ORDERED: CIPROFLOXACIN 500 MG TABLET PO ONE (02:00)
[2021-08-01] MEDS ORDERED: CIPROFLOXACIN 500 MG TABLET ONE (02:04)
--- NOTE | 2021-08-01 02:33 | NUR ---
Patient given discharge instructions and they have confirmed that they understand the instructions. Patient ambulatory with steady gait. NAD, all questions answered appropriately, denies additional needs at this time. No personal belongings left in room after discharge.
== END 2021-08-01 02:35 | disposition home or self-care (01) ==
LOC: ED 01:00
DX: N40.1 Benign prostatic hyperplasia with lower urinary tract symptoms (principal); R33.8 Other retention of urine; N30.00 Acute cystitis without hematuria; R94.4 Abnormal results of kidney function studies; J45.909 Unspecified asthma, uncomplicated
CPT/HCPCS: 36415; 80048; 81001; 82040; 85025; 87086; 99284

== ENCOUNTER 2021-08-06 21:41 | Inpatient (IN) | payer MEDICAID, OTHER ==
[~2021-08-06] VITALS: Ht 185.4 cm; Wt 65.1 kg
--- NOTE | 2021-08-06 21:52 | NUR ---
NIL X 1
[2021-08-06 22:41] LABS: MICROSCOPIC INDICATED
[2021-08-06 22:51] LABS: BASOPHILS % (AUTO) 1 % (0-1); EOSINOPHILS % (AUTO) 1 % (1-7); LYMPHOCYTES % (AUTO) 27 % (22-44); MEAN CORPUSCULAR HGB CONC 33.7 g/dL (33.2-36.2); MEAN PLATELET VOLUME 8.6 fL (7.4-10.4); MONOCYTES % (AUTO) 11 % (2-9); NEUTROPHILS % (AUTO) 61 % (42-75); PLATELET COUNT 237 x10^3/uL (130-400); RED BLOOD COUNT 4.64 x10^6/uL (4.38-5.82); RED CELL DISTRIBUTION WIDTH 12.8 % (9.4-14.8)
[2021-08-06 22:58] LABS: ALANINE AMINOTRANSFERASE 53 U/L (12-78); ALBUMIN 3.3 g/dL (3.4-5.0); ANION GAP 10 mmol/L (5-15); CALCIUM 9.4 mg/dL (8.5-10.1); CHLORIDE 114 mmol/L (98-107); CREATININE 4.41 mg/dL (0.7-1.3)
[2021-08-06 23:01] LABS: ALKALINE PHOSPHATASE 75 U/L (45-117); BILIRUBIN,TOTAL 0.6 mg/dL (0.2-1.0); TOTAL PROTEIN 7.7 g/dL (6.4-8.2)
--- NOTE | 2021-08-06 23:37 | NUR ---
STEPHANIE X 1 @[id number] NILX2 @ [id number]
--- NOTE | 2021-08-06 23:52 | NUR ---
JAYCEE 1 @[id number]
--- NOTE | 2021-08-07 00:10 | NUR ---
pt to room from lobby
[2021-08-07 00:28] LABS: AMPHETAMINE SCREEN, URINE Positive (Negative); BARBITURATE SCREEN, URINE Negative (Negative); BENZODIAZEPINE SCREEN, URINE Negative (Negative); CANNABINOID SCREEN, URINE Positive (Negative); COCAINE SCREEN, URINE Negative (Negative); METHADONE SCREEN, URINE Negative (Negative); OPIATE SCREEN, URINE Negative (Negative)
--- NOTE | 2021-08-07 00:29 | NUR ---
bladder scan done, 835 mls in bladder
--- NOTE | 2021-08-07 02:21 | NUR ---
late entry due to pt care. pt at first refusing pavon due to "they put it on backwards before and I don't want to deal with that again". Dr Painter aware and back in room to speak with pt about pavon. Pt still refusing and leaving AMA but then changed mind. This RN used sterile technigue and was unable to place [address] Painter to try and also unable to place coude. Dr. Painter to call urology. Pt agreeable to plan.
[2021-08-07] MEDS ORDERED: CEFTRIAXONE 1,000 MG in DEXTROSE 5% 50 ML IVPB ONE (02:30)
[2021-08-07] MEDS ORDERED: MORPHINE SULFATE 4 MG/ML, 1ML IVPush PRN (02:30)
[2021-08-07] MEDS ORDERED: ONDANSETRON 2MG/ML, 2ML IVPush ONE (02:30)
--- NOTE | 2021-08-07 02:45 | NUR ---
urology at bedside to place pavon catheter.
--- NOTE | 2021-08-07 03:04 | NUR ---
Report to Ivy CARMICHAEL
--- NOTE | 2021-08-07 03:08 | NUR ---
REPORT RECEIVED FROM JADEN CARMICHAEL
[2021-08-07] MEDS ORDERED: MORPHINE SULFATE 4 MG/ML, 1ML ONE (03:24)
[2021-08-07] MEDS ORDERED: ONDANSETRON 2MG/ML, 2ML ONE (03:24)
[2021-08-07] MEDS: CEFTRIAXONE 2 GM in DEXTROSE 5% 50 ML IVPB SCH (03:28)
[2021-08-07] MEDS ORDERED: HYDROmorphone 2 MG/ML, 1ML IVPush PRN (03:30)
[2021-08-07] MEDS ORDERED: POLYETHYLENE GLYCOL 17 GM PACKET PO PRN (03:30)
[2021-08-07] MEDS ORDERED: ONDANSETRON 2MG/ML, 2ML IVPush PRN (03:30)
[2021-08-07] MEDS ORDERED: OXYcodone IR 5MG TABLET PO PRN (03:30)
[2021-08-07] MEDS ORDERED: LABETALOL 5MG/ML, 20ML IVPush PRN (03:30)
[2021-08-07] MEDS ORDERED: ACETAMINOPHEN 325 MG TABLET PO PRN (03:30)
[2021-08-07] MEDS ORDERED: MELATONIN 5 MG TABLET PO PRN (03:30)
--- NOTE | 2021-08-07 04:01 | NUR ---
Pt to be admitted to MEDICAL, room 346. Report called to TAVIA CARMICHAEL.
[2021-08-07 05:16] VITALS: BP 123/81
[2021-08-07 07:50] VITALS: BP 107/68
[2021-08-07] MEDS: TAMSULOSIN 0.4 MG CAP.ER.24H PO SCH (11:23)
[2021-08-07] MEDS: FINASTERIDE 5 MG TABLET PO SCH (11:23)
[2021-08-07 11:52] LABS: ANION GAP 5 mmol/L (5-15); CALCIUM 8.6 mg/dL (8.5-10.1); CHLORIDE 115 mmol/L (98-107); CREATININE 3.93 mg/dL (0.7-1.3)
[2021-08-07 14:50] VITALS: BP 98/65
[2021-08-07 19:36] VITALS: BP_SYST 102; BP_SYST 116; BP_DIAS 66; BP_DIAS 79
[2021-08-08 01:38] VITALS: BP 102/78
[2021-08-08] MEDS: CEFTRIAXONE 2 GM in DEXTROSE 5% 50 ML IVPB SCH (03:33)
[2021-08-08 06:04] LABS: BASOPHILS % (AUTO) 0 % (0-1); EOSINOPHILS % (AUTO) 1 % (1-7); LYMPHOCYTES % (AUTO) 22 % (22-44); MEAN CORPUSCULAR HEMOGLOBIN 29.8 pg (27.5-34.5); MEAN PLATELET VOLUME 8.7 fL (7.4-10.4); MONOCYTES % (AUTO) 8 % (2-9); NEUTROPHILS % (AUTO) 69 % (42-75); PLATELET COUNT 164 x10^3/uL (130-400); RED BLOOD COUNT 4.35 x10^6/uL (4.38-5.82); RED CELL DISTRIBUTION WIDTH 13.3 % (9.4-14.8)
[2021-08-08 06:12] LABS: ANION GAP 4 mmol/L (5-15); CALCIUM 7.9 mg/dL (8.5-10.1); CHLORIDE 116 mmol/L (98-107); CREATININE 2.79 mg/dL (0.7-1.3)
[2021-08-08 08:05] VITALS: BP 100/65
[2021-08-08] MEDS: TAMSULOSIN 0.4 MG CAP.ER.24H PO SCH (09:15)
[2021-08-08] MEDS: FINASTERIDE 5 MG TABLET PO SCH (09:15)
[2021-08-08] MEDS ORDERED: FINA5TAB4 PO (09:38)
== END 2021-08-08 18:23 | disposition home or self-care (01) | DRG 693 ==
LOC: ED 22:00 → EDIP 08-07 02:39 → 3N 08-07 04:46
PROVIDERS: ADMIT Internal Medicine; ATTEND Family Medicine
DX: N13.8 Other obstructive and reflux uropathy (principal); N17.0 Acute kidney failure with tubular necrosis; N39.0 Urinary tract infection, site not specified; N40.1 Benign prostatic hyperplasia with lower urinary tract symptoms; F17.200 Nicotine dependence, unspecified, uncomplicated; K40.90 Unilateral inguinal hernia, without obstruction or gangrene, not specified as recurrent; F15.10 Other stimulant abuse, uncomplicated; N18.9 Chronic kidney disease, unspecified; N32.0 Bladder-neck obstruction; R33.8 Other retention of urine; Z63.8 Other specified problems related to primary support group; Z91.19 Patient's noncompliance with other medical treatment and regimen
CPT/HCPCS: 36415; 74176; 80048; 80053; 80307; 81001; 85025; 87086; 96374; G0378; J0696; J2405; J2270

== ENCOUNTER 2021-08-10 01:31 | Emergency (ER) | payer SELFPAY ==
[~2021-08-10] VITALS: Ht 188 cm; Wt 63.6 kg
[2021-08-10 02:03] VITALS: BP 117/77
== END 2021-08-10 02:09 | disposition home or self-care (01) ==
LOC: ED 01:36
DX: R31.9 Hematuria, unspecified (principal); J45.909 Unspecified asthma, uncomplicated; F17.290 Nicotine dependence, other tobacco product, uncomplicated